=== PATIENT | female | born 1955 | race Caucasian/White ===

== ENCOUNTER 2018-07-07 08:17 | Day surgery (SDC) | payer OTHER ==
[~2018-07-07 08:17] MED LIST: Buffered Lidocaine 0.9% SYRIN* 5 ML/SYR SYRINGE INTRADERM ONE; DiMENhydriNATE IV* 50 MG/ML VIAL IV PUSH PRN; Famotidine IV* 10 MG/ML 2 ML (20 mg) IV ONE; Famotidine IV* 10 MG/ML 2 ML (20 mg) ONE; Naloxone* 0.4 MG/ML 1 ML VIAL IV PRN; Ondansetron ODT TAB* 4 MG ONE; Ondansetron TAB* 4 MG PO ONE; PROCHLORPERAZINE INJ 5 MG/ML 2 ML VIAL IV PRN; fentaNYL* 50 MCG/ML 2 ML VIAL (100 MCG VIAL) IV PRN; oxyCODONE/Acetamin 5/325 MG* TAB PO PRN
[2018-07-07] MEDS ORDERED: fentaNYL* 50 MCG/ML 2 ML VIAL (100 MCG VIAL) ONE (09:04)
[2018-07-07] MEDS ORDERED: KETAMINE HCL* 50 MG/ML 10 ML VIAL ONE (09:04)
[2018-07-07] MEDS ORDERED: Midazolam* 1 MG/ML 5 ML VIAL (5 MG) ONE (09:04)
[2018-07-07] MEDS ORDERED: Bupivacaine 0.25% SDV PF* 10 ML VIAL INJ ONE (09:28)
[2018-07-07] MEDS ORDERED: Insulin REGULAR(*) 1 UNITS UNIT ONE (09:32)
[2018-07-07] MEDS ORDERED: Labetalol IV* 5 MG/ML 20 ML VIAL ONE (10:17)
[2018-07-07] MEDS ORDERED: hydrALAZINE IV* 20 MG/ML VIAL ONE (10:17)
[2018-07-07] MEDS ORDERED: Lidocaine 2% PF * 5 ML VIAL ONE (10:17)
[2018-07-07] MEDS ORDERED: Propofol* 10 MG/ML 20 ML BTL ONE (10:17)
[2018-07-07 10:46] VITALS: BP 149/64
--- NOTE | 2018-07-08 04:48 | OP ---
DATE OF OPERATION: 07/07/18 [facility] DATE OF : 53 SURGEON: Naseem Andrews MD LABOR RELATIONS WORKER: CHU Swanson ANESTHESIOLOGIST: Dr. Weinstein. ANESTHESIA: Local MAC. PRE-OP DIAGNOSIS: Left de Quervain's disease. POST-OP DIAGNOSIS: Left de Quervain's disease. OPERATIVE PROCEDURE: 1. Left left de Quervain's release with tenosynovectomy. 2. Left abductor pollicis longus partial extensor tendon rupture debridement. INDICATIONS: Any has chronic de Quervain's disease. She has failed nonoperative treatment. We talked about risks and benefits. She wants to proceed with surgery. ESTIMATED BLOOD LOSS: 1 mL. COMPLICATIONS: None. FINDINGS: See above and below. DESCRIPTION OF PROCEDURE: Any was seen in the preoperative holding area. The correct side, site and procedure were identified. We came back to the operating room. The arm was prepped and draped in usual fashion. A time-out was performed. The arm was exsanguinated with the Esmarch and the tourniquet was inflated to 250 mmHg. I made a transverse 1 to 2 cm incision just proximal to the radial styloid over the first dorsal compartment tendon sheath. Dissection was carried down and the radial sensory nerve protected and retracted dorsally throughout the case. I released the sheath overlying the first dorsal compartment along its dorsal aspect. The sheath was extremely thickened probably 3 or more millimeters thick. The release was completed until I was able to mobilize the tendons. The abductor pollicis longus tendon had multiple slips and one of the slips was noted to be at least half ruptured. There was also lot of tenosynovitis. I went ahead and performed a full tenosynovectomy along the course of the first dorsal compartment tendons. There was no accessory compartment. I then debrided the partial tendon rupture back until the remaining tendon was clean and healthy. The release was looking good at this point, so we irrigated out the wound. The skin was closed with 4-0 Monocryl and a Steri-Strip. Soft dressings were applied. Tourniquet was deflated and she was taken to the recovery room in stable condition. [id number]/[facility] #: [id number] [facility]
== END 2018-07-07 11:19 | disposition home or self-care (01) ==
LOC: OREAST 08:17
PROVIDERS: ATTEND Orthopaedic Surgery Hand Surgery
DX: M65.4 Radial styloid tenosynovitis [de Quervain] (principal); I10 Essential (primary) hypertension; E78.5 Hyperlipidemia, unspecified; E11.9 Type 2 diabetes mellitus without complications; Z79.4 Long term (current) use of insulin; E03.9 Hypothyroidism, unspecified
CPT/HCPCS: A9270-GY; J0360; J2250; J2704; J3010; J3490